=== PATIENT | female | born 1970 | race Hispanic/Latino ===

== ENCOUNTER 2020-03-14 08:22 | Emergency (ER) | payer SELFPAY ==
[2020-03-14 08:33] VITALS: BP 123/79
--- NOTE | 2020-03-14 09:18 | Emergency Department Report ---
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 She has hx of psoriasis and does note some skin irritation after exposure and clean skin post exposure. will obtain baseline post exposure labs, offer HIV prophylaxis, and follow up with employee health, workmans comp, and or infections disease. Onset/Timin -: days(s) Location: upper extremity Radiation: non-radiation Severity scale (0 -10): 3 Quality: other (itching rash mild erythema ) Consistency: intermittent Improves with: none Worsens with: none Associated Symptoms: rash. denies: chest pain, fever/chills, nausea/vomiting, shortness of breath Treatments Prior to Arrival: none - Related Data Previous Rx's Medication Instructions Recorded Last Taken Type Dolutegravir [Tivicay] 50 mg PO DAILY #30 tablet 03/14/20 Unknown Rx Emtricitabine/Tenofovir (Tdf) 2 each PO DAILY #60 tablet 03/14/20 Unknown Rx [Truvada 100 mg-150 mg Tablet] Allergies Allergy/AdvReac Type Severity Reaction Status Date / Time Penicillins Allergy Hives Verified 03/14/20 08:28 Sulfa (Sulfonamide Allergy Hives Verified 03/14/20 08:28 Antibiotics) YEAST Allergy Hives Uncoded 03/14/20 08:28 ED Review of Systems ROS: Stated complaint: SPLASHED DURRING DELIVERY Other details as noted in HPI Constitutional: denies: chills, fever Eyes: denies: eye pain, eye discharge, vision change ENT: denies: ear pain, throat pain Respiratory: denies: cough, shortness of breath, wheezing Cardiovascular: denies: chest pain, palpitations Endocrine: no symptoms reported Gastrointestinal: as per HPI. denies: abdominal pain, nausea, vomiting Genitourinary: as per HPI Musculoskeletal: denies: back pain, joint swelling, arthralgia Skin: pruritus Neurological: denies: headache, weakness, paresthesias Psychiatric: denies: anxiety, depression Hematological/Lymphatic: denies: easy bleeding, easy bruising ED Past Medical Hx - Past Medical History Additional medical history: LUPUS/ THYROID /RA CELIAC DISEASE/ AUTO IMMUNE DISEASE [place]/ SCLERODERMA - Social History Smoking Status: Never Smoker Substance Use Type: None - Medications Home Medications: Home Medications Medication Instructions Recorded Confirmed Last Taken Type Dolutegravir [Tivicay] 50 mg PO DAILY #30 tablet 03/14/20 Unknown Rx Emtricitabine/Tenofovir (Tdf) 2 each PO DAILY #60 tablet 03/14/20 Unknown Rx [Truvada 100 mg-150 mg Tablet] ED Physical Exam - General Limitations: No Limitations General appearance: alert, in no apparent distress - Head Head exam: Present: atraumatic, normocephalic - Eye Eye exam: Present: normal appearance, EOMI Pupils: Present: normal accommodation - ENT ENT exam: Present: mucous membranes moist - Neck Neck exam: Present: normal inspection - Respiratory Respiratory exam: Present: normal lung sounds bilaterally. Absent: respiratory distress, wheezes, stridor - Cardiovascular Cardiovascular Exam: Present: regular rate, normal rhythm, normal heart sounds. Absent: systolic murmur, diastolic murmur, rubs, gallop - GI/Abdominal GI/Abdominal exam: Present: soft. Absent: tenderness - Rectal Rectal exam: Present: deferred - Extremities Exam Extremities exam: Present: full ROM, normal capillary refill, other (pruritis mild erythema no open skin no weeping ) - Back Exam Back exam: Present: normal inspection, full ROM - Neurological Exam Neurological exam: Present: alert, oriented X3, CN II-XII intact, normal gait - Psychiatric Psychiatric exam: Present: normal affect, normal mood - Skin Skin exam: Present: warm, dry, intact, normal color, rash, erythema (bilat upper extrem), urticaria ED Course Vital Signs 03/14/20 03/14/20 08:27 08:33 Temperature 97.9 F Pulse Rate 67 Respiratory 20 Rate Blood Pressure 123/79 O2 Sat by Pulse 100 Oximetry ED Medical Decision Making - Medical Decision Making Obtained baseline post exposure labs , rx for hiv exposure prophylaxis, follow up with employee health, pt with nad at this time, verbalized agreement and understanding of same. D/C to self in stable condition at this time. Critical care attestation.: If time is entered above; I have spent that time in minutes in the direct care of this critically ill patient, excluding procedure time. ED Disposition Clinical Impression: Employee exposure to body fluids Disposition: DC- TO HOME OR SELFCARE Is pt being admited?: No Does the pt Need Aspirin: No Condition: Stable Instructions: Postexposure Prophylaxis (ED) Additional Instructions: follow with your employers employee health or workmans comp doctor as directed Prescriptions: Dolutegravir [Tivicay] 50 mg PO DAILY #30 tablet Emtricitabine/Tenofovir (Tdf) [Truvada 100 mg-150 mg Tablet] 2 each PO DAILY #60 tablet Referrals: GALO RIVERA MD [Staff Physician] - 3-5 Days Forms: Work/School Release Form(ED) Time of Disposition: 09:23
[2020-03-14 11:05] LABS: Basophils % (Auto) 0.8 % (0.0-1.8); Eosinophils # (Auto) 0.1 K/mm3 (0.0-0.4); Eosinophils % (Auto) 1.9 % (0.0-4.3); Hematocrit 39.8 % (30.3-42.9); Hemoglobin 13.4 gm/dl (10.1-14.3); Lymphocytes # (Auto) 0.9 K/mm3 (1.2-5.4); Lymphocytes % (Auto) 32.3 % (13.4-35.0); Mean Corpuscular HGB Conc 34 % (30-34); Mean Corpuscular Volume 91 fl (79-97); Monocytes # (Auto) 0.3 K/mm3 (0.0-0.8); Monocytes % (Auto) 8.8 % (0.0-7.3); Platelet Count 195 K/mm3 (140-440); Red Blood Count 4.39 M/mm3 (3.65-5.03); Red Cell Distribution Width 12.5 % (13.2-15.2)
[2020-03-14 11:29] LABS: Alanine Aminotransferase 15 units/L (7-56); Albumin 4.9 g/dL (3.9-5); BUN/Creatinine Ratio 18; Blood Urea Nitrogen 11 mg/dL (7-17); Calcium 9.6 mg/dL (8.4-10.2); Hemolysis Index 17
[2020-03-14] MEDS ORDERED: EMTRICITABINE 200 MG CAP PO ONE (12:00)
[2020-03-14] MEDS ORDERED: TENOFOVIR 300 MG TAB PO ONE (12:00)
[2020-03-14] MEDS ORDERED: DOLUTEGRAVIR 50 MG TAB PO SCH (12:00)
== END 2020-03-14 12:43 | disposition home or self-care (01) ==
LOC: ED 08:22
DX: L53.8 Other specified erythematous conditions (principal); Z88.2 Allergy status to sulfonamides; Z88.0 Allergy status to penicillin
CPT/HCPCS: 36415; 80053; 85025; 99283